=== PATIENT | female | born 1960 | race Caucasian/White ===

== ENCOUNTER 2020-01-07 17:50 | Emergency (ER) | payer BC ==
--- NOTE | 2020-01-07 18:19 | EDM.PDOC ---
ED HPI GENERAL MEDICAL PROBLEM - General Chief Complaint: Upper Extremity Injury/Pain Stated Complaint: right wrist injury Time Seen by Provider: 01/07/20 18:05 Source of Information: Reports: Patient History Limitations: Reports: No Limitations - History of Present Illness INITIAL COMMENTS - FREE TEXT/NARRATIVE: She presents to the emergency department for evaluation of injury to her right wrist. She was lifting a box out of her pickup and fell backwards landing on the right arm. She thinks the wrist was extended but is not sure of the exact position or mechanism. She has pain fairly diffusely in the wrist. Sharp pain with any active movement. Increased pain with movement of the fingers but she does have good finger movement. No numbness or tingling in the fingers. No injury to the elbow or shoulder. She denies hitting her head. No pain on the left side. She is otherwise without complaints. Right Wrist Pain Score (Numeric/FACES): 7 - Related Data Allergies Allergy/AdvReac Type Severity Reaction Status Date / Time No Known Allergies Allergy Verified 01/07/20 17:54 Home Meds: Home Meds . [No Known Home Meds] 01/07/20 [History] Past Medical History - Past Surgical History HEENT Surgical History: Reports: Oral Surgery Musculoskeletal Surgical History: Reports: Other (See Below) Other Musculoskeletal Surgeries/Procedures:: bilateral knee surgery. ACL repair both legs Social & Family History - Tobacco Use Smoking Status *Q: Never Smoker Review of Systems - Review of Systems Review Of Systems: See Below Constitutional: Denies: Chills, Diaphoresis Eyes: Denies: Vision Change Ears: Denies: Dizziness, Pain Nose: Denies: Congestion, Epistaxis Mouth/Throat: Denies: Pain Respiratory: Denies: Shortness of Breath, Cough Cardiovascular: Denies: Chest Pain, Palpitations GI/Abdominal: Denies: Abdominal Pain, Nausea, Vomiting Genitourinary: Denies: Dysuria Musculoskeletal: Reports: Joint Pain. Denies: Neck Pain, Back Pain Skin: Reports: No Symptoms Neurological: Denies: Confusion, Dizziness, Headache, Numbness, Paresthesia Psychiatric: Reports: No Symptoms ED EXAM, GENERAL - Physical Exam Exam: See Below Free Text/Narrative:: Right wrist: Mild swelling in the dorsal aspect. There does appear to be slight dorsal angulation of the distal forearm/wrist. No other deformity. Sharp tenderness over the distal radius. Mild tenderness over the distal ulna on the dorsal aspect but not on the volar aspect. Full extension with pain in the extreme. Decreased flexion and left and right deviation limited by pain. Right hand: No swelling or deformity. No discoloration. No tenderness or palpable defect. Full range of motion in the fingers. Decreased toy maker strength secondary to wrist pain. Right shoulder and elbow show no swelling, deformity, discoloration, tenderness or limitations of motion. Left shoulder, elbow, wrist and hand show no swelling, deformity, discoloration, tenderness or limitations of motion. Exam Limited By: No Limitations General Appearance: Alert, WD/WN, No Apparent Distress Course - Vital Signs Text/Narrative:: Hematoma block is done with a total of 10 cc of a 50/50 mixture of lidocaine and bupivacaine with good analgesia. Fracture was reduced without difficulty and volar Orthoplast splint was applied. Follow-up x-rays showed good alignment. Last Recorded V/S: Last Vital Signs Temp 35.8 C L 01/07/20 17:55 Pulse 68 01/07/20 18:41 Resp 16 01/07/20 18:08 BP 96/54 L 01/07/20 18:41 Pulse Ox 97 01/07/20 18:41 - Orders/Labs/Meds Orders: Active Orders 24 hr Category Date Time Status Wrist 2V Rt [CR] Stat Exams 01/07/20 18:38 Ordered Wrist Comp Min 3V Rt [CR] Stat Exams 01/07/20 17:59 Taken Meds: Medications Discontinued Medications Generic Name Dose Route Start Last Admin Trade Name Zbigniewq PRN Reason Stop Dose Admin Bupivacaine HCl Confirm 01/07/20 18:25 01/07/20 18:32 Sensorcaine-Mpf 0.5% Administered 01/07/20 18:26 Not Given Dose 10 ml .ROUTE .STK-MED ONE Bupivacaine HCl 10 ml 01/07/20 18:25 01/07/20 18:32 Sensorcaine-Mpf 0.5% INJECT 01/07/20 18:26 10 ml ONETIME ONE Administration - Radiology Interpretation Free Text/Narrative:: AP, lateral and oblique views of the right wrist. Findings: Fracture of the distal radius with moderate dorsal angulation. Nondisplaced fracture of the ulnar styloid. No other fractures noted. Impression: Angulated nondisplaced distal radius fracture. AP, lateral and oblique views of the right wrist postreduction Findings: Nondisplaced fracture of the distal radius with excellent alignment. Nondisplaced fracture of the distal ulnar styloid. Impression: Distal radius and ulna fractures in good position. Departure - Departure Time of Disposition: 18:55 Disposition: Home, Self-Care 01 Clinical Impression: Traumatic closed fracture of distal end of right radius and ulna with minimal displacement, Fracture of radius - Discharge Information *PRESCRIPTION DRUG MONITORING PROGRAM REVIEWED*: No *COPY OF PRESCRIPTION DRUG MONITORING REPORT IN PATIENT SANDRA: No Instructions: Wrist Fracture Treated With Immobilization, [id number] Referrals: Wendy Varela NP [Primary Care Provider] - Forms: ED Department Discharge Additional Instructions: Given routine instructions as far as the splint. Apply ice to the wrist for 15 minutes 3-4 times daily. Keep the wrist elevated when possible. Activity as tolerated in the splint as long as it is pain-free. Aleve 2 tablets twice daily with food for 5 to 7 days. Tylenol as needed for additional pain control. Tramadol 50 mg 1 to 2 tablets up to 4 times daily as needed for additional pain control. Dispensed 10 tablets in the ED and given a prescription for an additional 20 tablets if needed. Follow-up with orthopedics next week. Sepsis Event Note (ED) - Evaluation Sepsis Screening Result: No Definite Risk - Focused Exam Vital Signs: Vital Signs Temp Pulse Resp BP Pulse Ox 01/07/20 18:41 68 96/54 L 97 01/07/20 18:33 70 87/46 L 01/07/20 18:19 70 95/53 L 01/07/20 18:08 73 16 98 01/07/20 17:55 35.8 C L 68 16 96/55 L 98 - My Orders Last 24 Hours: My Active Orders 01/07/20 17:59 Wrist Comp Min 3V Rt [CR] Stat 01/07/20 18:38 Wrist 2V Rt [CR] Stat - Assessment/Plan Last 24 Hours: My Active Orders 01/07/20 17:59 Wrist Comp Min 3V Rt [CR] Stat 01/07/20 18:38 Wrist 2V Rt [CR] Stat
[2020-01-07] MEDS: Bupivacaine 0.5% 10 ML SDV ONE (18:32)
[2020-01-07] MEDS: Bupivacaine 0.5% 10 ML SDV INJECT ONE (18:32)
== END 2020-01-07 19:12 | disposition home or self-care (01) ==
LOC: LL.ED 17:50
DX: S52.614A Nondisplaced fracture of right ulna styloid process, initial encounter for closed fracture (principal); S52.501A Unspecified fracture of the lower end of right radius, initial encounter for closed fracture; W19.XXXA Unspecified fall, initial encounter
CPT/HCPCS: 25605; 73100; 73110; 99283; J3490